=== PATIENT | female | born 1990 | race Asian ===

== ENCOUNTER → 2017-04-04 | Outpatient (CLI) | payer OTHER ==
--- NOTE | 2017-04-04 11:30 | KCIC ---
CHEST AP ONLY History: Positive TB reaction Comparison: None. Findings: There is likely partially calcified nodule of the mid to superior left hemithorax. There is some reticular opacity emanating from the right suprahilar region. There is no lobar consolidation, pleural fluid, pneumothorax. Heart size is within normal limits. Impression: 1. There are no convincing radiographic findings suggestive of active tuberculosis, some reticular opacity of the right suprahilar region and also calcified granuloma of the mid to superior left hemithorax which may be due to old granulomatous disease. Electronically signed by: Johnathan Hughes MD (04/04/2017 11:26 AM) [id number]
== END | disposition home or self-care (01) ==
LOC: KCIC 10:03
PROVIDERS: ATTEND Family Medicine
DX: R76.11 Nonspecific reaction to tuberculin skin test without active tuberculosis (principal)
CPT/HCPCS: 71010

== ENCOUNTER 2018-01-26 10:18 | Inpatient (IN) | payer OTHER ==
[2018-01-26 11:13] LABS: ADD MAN DIFF? NO
[2018-01-26 11:16] LABS: BASO % 0 % (0-3); EOS % 0 % (0-3); HEMATOCRIT 38.9 % (36.0-47.0); HEMOGLOBIN 13.4 g/dL (12.0-15.5); LYMPH # 1.3 x10^3/uL (1.0-4.8); LYMPH % 13 % (24-48); MEAN CORPUSCULAR HEMOGLOBIN 30 pg (25-35); MEAN CORPUSCULAR HGB CONC 34 g/dL (31-37); MEAN CORPUSCULAR VOLUME 86 fL (79-100); MONO % 9 % (0-9); NEUT # 7.9 x10^3uL (1.8-7.7); NEUT % 77 % (31-73); PLATELET COUNT 335 x10^3/uL (140-400); RED BLOOD COUNT 4.51 x10^6/uL (3.50-5.40); RED CELL DISTRIBUTION WIDTH 13.6 % (11.5-14.5); WHITE BLOOD COUNT 10.2 x10^3/uL (4.0-11.0)
[2018-01-26] MEDS: IV NORMAL SALINE 1000ML BAG 1,000 ML IV ×2 (11:22→14:20)
[2018-01-26] MEDS: diphenhydrAMINE 50 MG/ML VIAL IVP (11:23)
[2018-01-26] MEDS: methylPREDNISolone SOD SUCC PF 125 MG/2 ML VIAL. IV (11:23)
[2018-01-26] MEDS: FAMOTIDINE 20 MG/2 ML VIAL IVP (11:23)
[2018-01-26 11:30] LABS: ANION GAP 9 (6-14); BLOOD UREA NITROGEN 16 mg/dL (7-20); BUN/CREATININE RATIO 20 (6-20); CALCIUM 8.4 mg/dL (8.5-10.1); CARBON DIOXIDE 25 mmol/L (21-32); CHLORIDE 104 mmol/L (98-107); CREATININE 0.8 mg/dL (0.6-1.0); GLUCOSE 85 mg/dL (70-99); POTASSIUM 3.5 mmol/L (3.5-5.1); SODIUM 138 mmol/L (136-145)
[2018-01-26 11:36] LABS: ALBUMIN 3.2 g/dL (3.4-5.0); ALBUMIN/GLOBULIN RATIO 0.7 (1.0-1.7); ALK PHOS 112 U/L (46-116); ALT (SGPT) 56 U/L (14-59); AST (SGOT) 22 U/L (15-37); TOTAL BILIRUBIN 0.4 mg/dL (0.2-1.0); TOTAL PROTEIN 7.6 g/dL (6.4-8.2)
[2018-01-26 11:38] LABS: URINE HCG POC HCG NEGATIVE (Negative)
[2018-01-26 11:40] LABS: BILIRUBIN,URINE NEGATIVE (NEG); CLARITY,URINE CLEAR; COLOR,URINE YELLOW; GLUCOSE,URINE NEGATIVE (NEG); NITRITE,URINE NEGATIVE (NEG); PROTEIN,URINE NEGATIVE (NEG-TRACE)
[2018-01-26 11:56] LABS: BACTERIA,URINE MANY /HPF (0-FEW); RBC,URINE 0 /HPF (0-2); SQUAMOUS EPITHELIAL CELL,UR MOD /LPF; WBC,URINE OCC /HPF (0-4)
[2018-01-26] MEDS ORDERED: ONDANSETRON PF 4 MG/2 ML VIAL. IV ×2 (13:30→14:30)
[2018-01-26] MEDS ORDERED: ACETAMINOPHEN 325 MG TABLET. PO (13:30)
[2018-01-26] MEDS ORDERED: DOCUSATE SODIUM 100 MG CAPSULE. PO (14:30)
[2018-01-26] MEDS ORDERED: traMADol 50 MG TABLET PO (14:30)
[2018-01-26] MEDS ORDERED: hydrALAZINE 20 MG/ML VIAL. IVP (14:30)
[2018-01-26] MEDS ORDERED: PIP/TAZO PER PHARMACY MC (14:30)
[2018-01-26] MEDS: MORPHINE SULFATE 4 MG/ML DISP.SYRIN. IV (15:06)
[2018-01-26] MEDS: HYDROcodone/APAP 5/325MG 1 TAB TABLET PO ×2 (15:38→21:41)
[2018-01-26] MEDS: ACETAMINOPHEN 325 MG TABLET. PO ×2 (15:39→21:41)
[2018-01-26] MEDS: PIPERACILLIN/TAZOBACTAM 4.5 GM in IV NORMAL SALINE 100ML 100 ML IV (15:39)
[2018-01-26] MEDS: LACTOBACILLUS RHAMNOSUS GG 1 CAPSULE. PO (21:40)
[2018-01-26] MEDS: ENOXAPARIN 40 MG/0.4 ML SYRINGE. SQ (21:41)
[2018-01-27] MEDS: PIPERACILLIN/TAZOBACTAM 4.5 GM in IV NORMAL SALINE 100ML 100 ML IV ×4 (00:52→17:07)
[2018-01-27] MEDS: MORPHINE SULFATE 4 MG/ML DISP.SYRIN. IV (03:12)
[2018-01-27 04:26] LABS: ADD MAN DIFF? NO
[2018-01-27 04:39] LABS: BASO % 0 % (0-3); EOS % 0 % (0-3); HEMATOCRIT 40.2 % (36.0-47.0); HEMOGLOBIN 13.6 g/dL (12.0-15.5); LYMPH % 9 % (24-48); MEAN CORPUSCULAR HEMOGLOBIN 29 pg (25-35); MEAN CORPUSCULAR HGB CONC 34 g/dL (31-37); MEAN CORPUSCULAR VOLUME 86 fL (79-100); MONO # 0.8 x10^3/uL (0.0-1.1); MONO % 7 % (0-9); NEUT # 9.6 x10^3uL (1.8-7.7); NEUT % 85 % (31-73); PLATELET COUNT 372 x10^3/uL (140-400); RED BLOOD COUNT 4.66 x10^6/uL (3.50-5.40); RED CELL DISTRIBUTION WIDTH 13.3 % (11.5-14.5); WHITE BLOOD COUNT 11.4 x10^3/uL (4.0-11.0)
[2018-01-27 05:04] LABS: ALBUMIN 2.9 g/dL (3.4-5.0); ALBUMIN/GLOBULIN RATIO 0.6 (1.0-1.7); ALK PHOS 116 U/L (46-116); ALT (SGPT) 56 U/L (14-59); ANION GAP 7 (6-14); AST (SGOT) 23 U/L (15-37); BLOOD UREA NITROGEN 11 mg/dL (7-20); BUN/CREATININE RATIO 16 (6-20); CALCIUM 8.8 mg/dL (8.5-10.1); CARBON DIOXIDE 28 mmol/L (21-32); CHLORIDE 105 mmol/L (98-107); CREATININE 0.7 mg/dL (0.6-1.0); GFR 100.4; GLUCOSE 112 mg/dL (70-99); POTASSIUM 3.7 mmol/L (3.5-5.1); SODIUM 140 mmol/L (136-145); TOTAL BILIRUBIN 0.5 mg/dL (0.2-1.0); TOTAL PROTEIN 7.6 g/dL (6.4-8.2)
[2018-01-27] MEDS: LACTOBACILLUS RHAMNOSUS GG 1 CAPSULE. PO ×2 (09:44→21:03)
[2018-01-27] MEDS: HYDROcodone/APAP 5/325MG 1 TAB TABLET PO ×3 (09:52→21:03)
[2018-01-27] MEDS ORDERED: VANCOMYCIN 1 GM in IV DEXTROSE 5% 250 ML IV (10:00)
[2018-01-27] MEDS: VANCOMYCIN 1.75 GM in IV 1/2 NORMAL SALINE 500 ML IV (10:34)
[2018-01-27] MEDS: VANCOMYCIN PER PHARMACY MC (12:34)
[2018-01-27] MEDS: DEXAMETHASONE 0.1% OPHTH SOLUTION 5ML BOTTLE. AD ×2 (13:26→21:04)
[2018-01-27] MEDS: CIPROFLOXACIN 0.3% OPHTH SOLUTION 5ML BOTTLE. AD ×2 (13:26→21:04)
[2018-01-27] MEDS: VANCOMYCIN 1 GM in IV DEXTROSE 5% 250 ML IV (17:59)
[2018-01-27] MEDS: ENOXAPARIN 40 MG/0.4 ML SYRINGE. SQ (21:04)
[2018-01-28] MEDS: PIPERACILLIN/TAZOBACTAM 4.5 GM in IV NORMAL SALINE 100ML 100 ML IV ×4 (00:08→16:55)
[2018-01-28] MEDS: VANCOMYCIN 1 GM in IV DEXTROSE 5% 250 ML IV ×2 (03:46→10:35)
[2018-01-28] MEDS: DEXAMETHASONE 0.1% OPHTH SOLUTION 5ML BOTTLE. AD ×2 (08:32→20:42)
[2018-01-28] MEDS: CIPROFLOXACIN 0.3% OPHTH SOLUTION 5ML BOTTLE. AD ×2 (08:32→20:41)
[2018-01-28] MEDS: LACTOBACILLUS RHAMNOSUS GG 1 CAPSULE. PO ×2 (08:32→20:41)
[2018-01-28] MEDS: HYDROcodone/APAP 5/325MG 1 TAB TABLET PO (08:32)
[2018-01-28 10:09] LABS: ADD MAN DIFF? NO
[2018-01-28 10:12] LABS: BASO % 0 % (0-3); EOS # 0.1 x10^3/uL (0.0-0.7); EOS % 1 % (0-3); HEMATOCRIT 39.9 % (36.0-47.0); HEMOGLOBIN 13.8 g/dL (12.0-15.5); LYMPH % 25 % (24-48); MEAN CORPUSCULAR HEMOGLOBIN 30 pg (25-35); MEAN CORPUSCULAR HGB CONC 35 g/dL (31-37); MEAN CORPUSCULAR VOLUME 87 fL (79-100); MONO # 0.9 x10^3/uL (0.0-1.1); MONO % 12 % (0-9); NEUT % 63 % (31-73); PLATELET COUNT 358 x10^3/uL (140-400); RED BLOOD COUNT 4.58 x10^6/uL (3.50-5.40); RED CELL DISTRIBUTION WIDTH 13.4 % (11.5-14.5); WHITE BLOOD COUNT 7.9 x10^3/uL (4.0-11.0)
[2018-01-28 10:25] LABS: ANION GAP 6 (6-14); BLOOD UREA NITROGEN 10 mg/dL (7-20); CALCIUM 8.7 mg/dL (8.5-10.1); CARBON DIOXIDE 27 mmol/L (21-32); CHLORIDE 106 mmol/L (98-107); CREATININE 0.9 mg/dL (0.6-1.0); GFR 75.1; GLUCOSE 78 mg/dL (70-99); POTASSIUM 3.7 mmol/L (3.5-5.1); SODIUM 139 mmol/L (136-145)
[2018-01-28 10:31] LABS: VANC TR 21.6 mcg/mL (10.0-20.0)
[2018-01-28] MEDS: VANCOMYCIN PER PHARMACY MC (11:42)
[2018-01-28 16:10] LABS: MRSA BY PCR Negative (Negative)
[2018-01-28] MEDS: ENOXAPARIN 40 MG/0.4 ML SYRINGE. SQ (20:40)
[2018-01-28] MEDS: VANCOMYCIN 1.25 GM in IV 1/2 NORMAL SALINE 250 ML IV (22:34)
[2018-01-29] MEDS: PIPERACILLIN/TAZOBACTAM 4.5 GM in IV NORMAL SALINE 100ML 100 ML IV ×3 (00:12→12:00)
[2018-01-29 04:17] LABS: ADD MAN DIFF? NO
[2018-01-29 04:38] LABS: BASO % 0 % (0-3); EOS # 0.1 x10^3/uL (0.0-0.7); EOS % 1 % (0-3); HEMATOCRIT 40.1 % (36.0-47.0); HEMOGLOBIN 13.7 g/dL (12.0-15.5); LYMPH # 2.2 x10^3/uL (1.0-4.8); LYMPH % 26 % (24-48); MEAN CORPUSCULAR HEMOGLOBIN 30 pg (25-35); MEAN CORPUSCULAR HGB CONC 34 g/dL (31-37); MEAN CORPUSCULAR VOLUME 87 fL (79-100); MONO # 0.7 x10^3/uL (0.0-1.1); MONO % 9 % (0-9); NEUT # 5.4 x10^3uL (1.8-7.7); NEUT % 64 % (31-73); PLATELET COUNT 415 x10^3/uL (140-400); RED BLOOD COUNT 4.63 x10^6/uL (3.50-5.40); RED CELL DISTRIBUTION WIDTH 13.4 % (11.5-14.5); WHITE BLOOD COUNT 8.4 x10^3/uL (4.0-11.0)
[2018-01-29 04:43] LABS: ANION GAP 11 (6-14); BLOOD UREA NITROGEN 9 mg/dL (7-20); CARBON DIOXIDE 26 mmol/L (21-32); CHLORIDE 107 mmol/L (98-107); GFR 66.5; GLUCOSE 84 mg/dL (70-99); SODIUM 144 mmol/L (136-145)
[2018-01-29] MEDS: LACTOBACILLUS RHAMNOSUS GG 1 CAPSULE. PO (09:32)
[2018-01-29] MEDS: CIPROFLOXACIN 0.3% OPHTH SOLUTION 5ML BOTTLE. AD (09:34)
[2018-01-29] MEDS: DEXAMETHASONE 0.1% OPHTH SOLUTION 5ML BOTTLE. AD (09:34)
[2018-01-29] MEDS: VANCOMYCIN 1.25 GM in IV 1/2 NORMAL SALINE 250 ML IV (09:39)
[2018-01-29] MEDS: POTASSIUM CHLORIDE 20 MEQ TABLET.ER. PO (13:09)
== END 2018-01-29 13:15 | disposition home or self-care (01) | DRG 872 ==
LOC: 6 SOUTH 15:15 → ER 10:18 → 6 SOUTH 13:12
DX: A41.9 Sepsis, unspecified organism (principal); I95.9 Hypotension, unspecified; H60.21 Malignant otitis externa, right ear; H60.11 Cellulitis of right external ear; H66.91 Otitis media, unspecified, right ear; H93.8X9 Other specified disorders of ear, unspecified ear; I10 Essential (primary) hypertension; Z82.49 Family history of ischemic heart disease and other diseases of the circulatory system
CPT/HCPCS: 36415; 70450; 70486; 71046; 80048; 80053; 80202; 81001; 81025; 83605; 85025; 87040; 87071; 87075; 87205; 87641; 96361; 96365; 96375; 99285; 99285-25; J0690; J1200; J1650; J2270; J2543; J2930; J3370; J7030; S0028